=== PATIENT | male | born 1955 | race Caucasian/White ===

== ENCOUNTER 2016-07-13 19:27 | Emergency (ER) | payer MEDICARE ==
[~2016-07-13] VITALS: Ht 177.8 cm; Wt 70.9 kg
[~2016-07-13 19:27] MED LIST: BACTRIM DS 8001 TAB PO; CELEXA10 MG PO; CEPHALEXIN500 M1 PO; CRESTOR 10MG10 MG; CRESTOR 10MG10 MG PO; FLOMAX 0.40.4 MG/CAP PO; LASIX 40MG TABL40 MG PO; LASIX 80MG TABL80 MG PO; LIORESAL 1010 MG/TAB PO; LIORESAL20 MG PO; LORTAB 10/500 51 TAB PO; LORTAB 7.5/5001 TAB PO; MIRAPEX 1MG PO; ULTRAM 50MG TAB50 MG PO; UROCIT-K 1010 MEQ PO; UROCIT-K 5540 MG/TAB
[2016-07-13 19:31] VITALS: BP 137/88; TEMP 99.4
[2016-07-13] MEDS ORDERED: ZOLOFT 100MG100 MG PO (20:56)
[2016-07-13] MEDS ORDERED: LIORESAL20 MG PO (20:59)
[2016-07-13] MEDS ORDERED: ASPIRIN 81M81 MG/TA2 PO (20:59)
[2016-07-13] MEDS ORDERED: LASIX 40MG TABL40 MG PO (20:59)
[2016-07-13] MEDS ORDERED: ULTRAM 50MG TAB50 MG PO (21:00)
[2016-07-13] MEDS ORDERED: MIRAPEX0.25 MG PO (21:00)
[2016-07-13] MEDS ORDERED: ZOCOR 40MG40 MG PO (21:02)
[2016-07-13] MEDS ORDERED: FLEXERIL 1010 MG/TAB PO (21:02)
[2016-07-13] MEDS ORDERED: MIRALAX PA17 GM/Dose PO (21:03)
[2016-07-13] MEDS ORDERED: UROCIT-K 5540 MG/TAB PO (21:03)
[2016-07-13] MEDS ORDERED: NITROSTAT0.4 MG/TAB SL (21:04)
[2016-07-13] MEDS ORDERED: COLACE 100100 MG/CAP PO (21:04)
[2016-07-13] MEDS ORDERED: VESICARE10 MG PO (21:04)
[2016-07-13] MEDS ORDERED: COZAAR 25MG25 MG/TAB PO (21:05)
[2016-07-13 22:14] VITALS: PULSE 126
== END 2016-07-13 22:14 | disposition home or self-care (01) ==
LOC: COL.ER 19:27
DX: T83.098A Other mechanical complication of other urinary catheter, initial encounter (principal); G35 Multiple sclerosis

== ENCOUNTER 2016-07-15 11:20 | Day surgery (SDC) | payer MEDICARE ==
[~2016-07-15] VITALS: Ht 177.8 cm; Wt 70.9 kg
[~2016-07-15 11:20] MED LIST changes: +ASPIRIN 81M81 MG/TA2 PO; +COLACE 100100 MG/CAP PO; +COZAAR 25MG25 MG/TAB PO; +FLEXERIL 1010 MG/TAB PO; +MIRALAX PA17 GM/Dose PO; +MIRAPEX0.25 MG PO; +NITROSTAT0.4 MG/TAB SL; +UROCIT-K 5540 MG/TAB PO; +VESICARE10 MG PO; +ZOCOR 40MG40 MG PO; +ZOLOFT 100MG100 MG PO
[2016-07-15 12:33] VITALS: BP 109/72; PULSE 107; TEMP 97.5
[2016-07-15 12:53] LABS: BASO % 0.3 % (0.0-2.0); EOS # 0.3 (0.0-0.7); EOS % 2.5 % (0-4.0); GRAN # 7.7 (1.4-6.5); GRAN % 76.9 % (42.2-75.2); HEMATOCRIT 39.1 % (42.0-52.0); HEMOGLOBIN 12.5 g/dl (13.5-18.0); LYMPH # 1.5 (1.2-3.4); LYMPH % 14.5 % (20.0-51.0); MEAN CELL VOLUME 86 fl (80.0-100.0); MEAN CORPUSCULAR HEMOGLOBIN 27 pg (27.0-31.0); MEAN CORPUSCULAR HGB CONC 32 g/dl (33.0-37.0); MEAN PLATELET VOLUME 9.7 fl (7.4-10.4); MONO # 0.5 (0.1-0.6); MONO % 5.1 % (1.7-9.3); PLATELET COUNT 246 K/mm3 (130-400); RED BLOOD COUNT 4.57 M/mm3 (4.20-5.60); REDCELL DISTRIBUTION WIDTH-CV 14.9 % (11.5-14.5); WHITE BLOOD COUNT 10.1 K/mm3 (4.8-10.8)
[2016-07-15] MEDS ORDERED: COZAAR 25MG25 MG/TAB PO (12:54)
[2016-07-15] MEDS ORDERED: AMOXICILLIN 50500 MG PO (13:03)
[2016-07-15] MEDS ORDERED: VITAMIND3 5000 PO (13:05)
[2016-07-15] MEDS ORDERED: IMODIUM 2MG CAPS2 MG PO (13:06)
[2016-07-15 13:09] LABS: CALCIUM 10.2 mg/dL (8.4-10.2); CREATININE, serum 1.36 mg/dL (0.66-1.25); POTASSIUM 4.1 mmol/L (3.4-5.0)
[2016-07-15 14:07] VITALS: BP 100/72; PULSE 103
[2016-07-15 14:22] VITALS: BP 133/78; PULSE 98
[2016-07-15 14:47] VITALS: BP 135/82; PULSE 101
== END 2016-07-15 15:20 | disposition home or self-care (01) ==
LOC: SDCO 11:20
PROVIDERS: Nurse Anesthetist, Certified Registered; Urology
DX: R33.8 Other retention of urine (principal); N31.9 Neuromuscular dysfunction of bladder, unspecified; T83.098A Other mechanical complication of other urinary catheter, initial encounter; Z87.440 Personal history of urinary (tract) infections; G35 Multiple sclerosis; I25.2 Old myocardial infarction; Z95.5 Presence of coronary angioplasty implant and graft; Z79.899 Other long term (current) drug therapy; Z79.82 Long term (current) use of aspirin; Z79.84 Long term (current) use of oral hypoglycemic drugs; Z87.891 Personal history of nicotine dependence
CPT/HCPCS: J2250; J7030